=== PATIENT | male | born 1970 ===

== ENCOUNTER 2017-09-02 07:43 | Emergency (ER) | payer BC ==
[2017-09-02 07:47] VITALS: BMI 34.2
[2017-09-02 08:13] VITALS: O2SAT 100
[2017-09-02] MEDS ORDERED: Sodium Chloride 0.9% 1,000 ML IV ONE (08:14)
--- NOTE | 2017-09-02 08:18 | C.PDOC ---
History Of Present Illness 47 yr old male with no significant PMHx, presents to the ER for evaluation of left sided chest pain since 11pm last night. Patient states the pain is localized, intermittent and non radiating, unchanged with movement or breathing. Patient reports," has some financial issues with my , was on phone with her when pain started". At present time, patient is crying. Otherwise , Patient denies fever, chills, headache, dizziness, visual changes, focal deficits, neck pain, SOB, dyspnea, diaphoresis, palpitation, abd. pain, N/V, back pain, denies previous cardiac history, denies recent travel, B/L calf pain or any other active complaints. Time Seen by Provider: 09/02/17 07:56 Chief Complaint (Nursing): Chest Pain History Per: Patient History/Exam Limitations: no limitations Onset/Duration Of Symptoms: Sudden Onset (Last night 11pm) Past Medical History Reviewed: Historical Data, Nursing Documentation, Vital Signs Vital Signs: Last Vital Signs Temp 98.8 F 09/02/17 10:24 Pulse 86 09/02/17 10:24 Resp 18 09/02/17 10:24 BP 132/89 09/02/17 10:24 Pulse Ox 100 09/02/17 10:24 - Medical History PMH: Kidney Stones Surgical History: Cholecystectomy, Hernia Repair Family History: States: No Known Family Hx Denies: [place], CAD - Social History Hx Tobacco Use: No Hx Alcohol Use: No Hx Substance Use: No - Immunization History Hx Tetanus Toxoid Vaccination: No Hx Influenza Vaccination: No Hx Pneumococcal Vaccination: No Review Of Systems Except As Marked, All Systems Reviewed And Found Negative. Constitutional: Negative for: Fever, Chills Cardiovascular: Positive for: Chest Pain (Left sided) Respiratory: Negative for: Shortness of Breath Gastrointestinal: Negative for: Nausea, Vomiting Neurological: Negative for: Weakness, Numbness Physical Exam - Physical Exam Appears: Well, Non-toxic, Other (emotional distress) Skin: Warm, Dry, No Rash Head: Normacephalic Eye(s): bilateral: PERRL Nose: No Flaring, No Discharge Oral Mucosa: Moist, No Drooling Throat: No Drooling Neck: Trachea Midline, Supple Cardiovascular: Rhythm Regular, No Murmur, No JVD, Other ((-) carotid bruits) Respiratory: No Decreased Breath Sounds, No Accessory Muscle Use, No Rales, No Rhonchi, No Stridor, No Wheezing Gastrointestinal/Abdominal: Soft, No Tenderness, No Distention, No Guarding, No Rebound Back: No CVA Tenderness Extremity: Normal ROM, No Pedal Edema, No Deformity, No Swelling Neurological/Psych: Oriented x3, Normal Speech, Normal Motor ED Course And Treatment - Laboratory Results Result Diagrams: 09/02/17 08:30 09/02/17 08:30 Lab Interpretation: No Acute Changes ECG: Interpreted By Me, Viewed By Me ECG Rhythm: Sinus Rhythm ECG Interpretation: Normal Interpretation Of ECG: SR@87/min, NAD,no acute T wave or ST-T changes. Rate From EC (BPM) O2 Sat by Pulse Oximetry: 100 (RA) Pulse Ox Interpretation: Normal - Radiology CXR: Interpreted by Me, Viewed By Me CXR Interpretation: Yes: No Acute Disease Progress Note: Crisis evaluation was offered but patient refused. Pt was OBS in ED for 2 hours. On re-evaluation, pt is on phone with someone, crying. Pt reports mild improvement in chest apin after ED treatment. Afebrile, hemodynamicaly stable. NOn-toxic. ENT: no acute findings. Neck: SUpple, (-) JVD, (-) carotid bruits B/L. Lungs: CTA B/L, BS equal B/L. CVS: (+)S1S2, reg. ABd: benign. BLood work review and appears normal, Troponin I< D-Dimer- negative. EKG, CXR- normal study. Pt ahs clinical findings c/w CP r/o depression, anxiety. Crisis evaluation was offered again to patient-refused. Pt advised, ref. to F/u with PMD, Card and Psych in 2-3 days for re-eval. return to ED if any worsening or new changes. Medical Decision Making Medical Decision Making: PLAN: * CXR * EKG * Troponin * D-Dimer * CBC * CMP * Urinalysis * Xanax PO * Sodium Chloride IV Disposition - Disposition Disposition: HOME/ ROUTINE Disposition Time: 09:45 Condition: STABLE Additional Instructions: FOLLOW UP PMD, CARDIOLOGY IN 23 DAYS FOR RE-EVALUATION. FOLLOW UP WITH PSYCHIATRIST FOR EVALUATION OF POSSIBLE ANXIETY,DEPRESSION. RETURN TO ED IF ANY WORSENING OR NEW CHANGES. Instructions: Chest Pain (ED), Anxiety (ED) Forms: [employer] (Mexican), Work Excuse - Clinical Impression Clinical Impression: Chest pain, Anxiety - PA / [employer] / Resident Statement MD/DO has reviewed & agrees with the documentation as recorded. - Scribe Statement The provider has reviewed the documentation as recorded by the Scribe Jennifer Alvarenga All medical record entries made by the Scribe were at my direction and personally dictated by me. I have reviewed the chart and agree that the record accurately reflects my personal performance of the history, physical exam, medical decision making, and the department course for this patient. I have also personally directed, reviewed, and agree with the discharge instructions and disposition.
[2017-09-02] MEDS ORDERED: Sodium Chloride 0.9% 1,000 ML ONE (08:31)
[2017-09-02 08:34] LABS: BASO # 0.1 K/uL (0.0-0.2); EOS # 0.4 K/uL (0.0-0.7); EOS % 3.1 % (0.0-4.0); HEMATOCRIT 47.7 % (35.0-51.0); LYMPH # 2.3 K/uL (1.0-4.3); MEAN CELL VOLUME 91.4 fL (80.0-94.0); MEAN CORPUSCULAR HEMOGLOBIN 31.2 pg (27.0-31.0); MEAN CORPUSCULAR HGB CONC 34.1 g/dL (33.0-37.0); MEAN PLATELET VOLUME 8.5 fL (7.2-11.7); MONO # 0.6 K/uL (0.0-0.8); MONO % 5.4 % (0.0-10.0); WHITE BLOOD COUNT 11.9 K/uL (4.8-10.8)
[2017-09-02 08:38] LABS: URINE BILIRUBIN NEGATIVE (NEGATIVE); URINE BLOOD NEGATIVE (NEGATIVE); URINE COLOR Straw (YELLOW); URINE GLUCOSE (UA) NORMAL (Normal); URINE KETONE NEGATIVE (NEGATIVE); URINE LEUKOCYTE ESTERASE NEG Leu/uL (Negative); URINE PROTEIN NEGATIVE (NEGATIVE); URINE UROBILINOGEN NORMAL mg/dL (0.2-1.0); WBC URINE < 1 /hpf (0-5)
[2017-09-02 08:51] LABS: PARTIAL THROMBOPLASTIN TIME 39 SECONDS (21-34)
[2017-09-02 08:52] LABS: ALB/GLOB RATIO 1.4 (1.0-2.1); ALKALINE PHOSPHATASE 74 U/L (38-126); ALT/SGPT 55 U/L (21-72); AST/SGOT 28 U/L (17-59); BILIRUBIN,TOTAL 0.6 mg/dL (0.2-1.3); BLOOD UREA NITROGEN 11 mg/dL (9-20); CALCIUM 9.3 mg/dl (8.6-10.4); CARBON DIOXIDE 28 mmol/L (22-30); CHLORIDE 102 mmol/L (98-107); GFR AFRICAN-AMERICAN > 60; GLUCOSE,RANDOM 98 mg/dL (75-110); POTASSIUM 4.8 mmol/L (3.6-5.2); SODIUM 140 mmol/L (132-148); TOTAL PROTEIN 7.8 g/dL (6.3-8.3)
--- NOTE | 2017-09-02 09:08 | RAD ---
HISTORY: chest pain COMPARISON: No prior. TECHNIQUE: Chest PA and lateral FINDINGS: LUNGS: No active pulmonary disease. PLEURA: No significant pleural effusion identified. No pneumothorax apparent. CARDIOVASCULAR: Normal. OSSEOUS STRUCTURES: No significant abnormalities. VISUALIZED UPPER ABDOMEN: Normal. OTHER FINDINGS: None. IMPRESSION: No active disease.
[2017-09-02 10:25] VITALS: BP 132/89; PULSE 86; RESP 18; TEMP 98.8
--- NOTE | 2017-09-03 21:57 | CARD ---
APPROVED REPORT EKG Measurement Heart [id number] <Conclusion> Normal sinus rhythm Normal ECG
== END 2017-09-02 10:39 | disposition home or self-care (01) ==
LOC: C.ER 07:43
DX: F41.9 Anxiety disorder, unspecified (principal); R07.9 Chest pain, unspecified
CPT/HCPCS: 71020; 80053; 81001; 83880; 84484; 85025; 85378; 85610; 85730; 93005; 96360; 99285; J7040